=== PATIENT | female | born 1990 | race Caucasian/White ===

== ENCOUNTER 2017-08-26 09:43 | Emergency (ER) | payer MEDICAID ==
[2017-08-26] MEDS ORDERED: HYDROCODONE/ACETAMINOPHEN 5-325 MG TABLET PO ONE (10:06)
--- NOTE | 2017-08-26 11:28 | RADIOLOGY REPORT (SQ) ---
EXAM DESCRIPTION: FOOT LEFT COMPLETE COMPLETED DATE/TIME: 08/26/2017 10:54 am REASON FOR STUDY: fall, foot pain, swelling COMPARISON: None. NUMBER OF VIEWS: Three views. TECHNIQUE: AP, lateral and oblique radiographic images acquired of the left foot. LIMITATIONS: None. FINDINGS: MINERALIZATION: Normal. BONES: No acute fracture or dislocation. No worrisome bone lesions. JOINTS: No effusions. SOFT TISSUES: There is calcification along the expected location of the peroneal tendons, which corre lates with the area of pain indicated by the patient. Peroneal tendinopathy or partial-thickness tea r may be present. OTHER: No other significant finding. IMPRESSION: No acute fracture. Lateral foot pain with calcification/ossification of the peroneal tendons, indicating tendinopathy. Partial thickness tendon tear may be present TECHNICAL DOCUMENTATION: JOB ID: [id number] [employer]- All Rights Reserved
--- NOTE | 2017-08-26 11:58 | ER Document Report ---
ED Extremity Problem, Lower - General Chief Complaint: Foot Injury Stated Complaint: FALL/FOOT PAIN Time Seen by Provider: 08/26/17 09:53 Mode of Arrival: Wheelchair Information source: Patient Notes: Patient is a 27-year-old female who presents to the ER today for left foot pain after tripping and falling down some steps on it yesterday. Patient states that it bent underneath her. She admits to pain to the top of the foot and swelling to the top of the foot since that time. She denies any numbness or tingling. She admits to extreme pain with ambulation. TRAVEL OUTSIDE OF THE [place] IN LAST 30 DAYS: No - Related Data Allergies/Adverse Reactions: carbamazepine [From Tegretol] Allergy (Verified 08/26/17 09:46) ciprofloxacin [From Cipro] Allergy (Verified 08/26/17 09:46) Past Medical History - General Information source: Patient - Social History Smoking Status: Current Every Day Smoker Chew tobacco use (# tins/day): No Frequency of alcohol use: Occasional Drug Abuse: None Family History: Reviewed & Not Pertinent Patient has suicidal ideation: No Patient has homicidal ideation: No Renal/ Medical History: Denies: Hx Peritoneal Dialysis Psychiatric Medical History: Reports: Hx Bipolar Disorder, Hx Schizophrenia Past Surgical History: Reports: Hx Breast Surgery, Hx Cholecystectomy, Hx Urinary Tract Surgery - bladder stretching Review of Systems - Review of Systems Constitutional: No symptoms reported EENT: No symptoms reported Cardiovascular: No symptoms reported Respiratory: No symptoms reported Gastrointestinal: No symptoms reported Genitourinary: No symptoms reported Female Genitourinary: No symptoms reported Musculoskeletal: See HPI Skin: See HPI Hematologic/Lymphatic: No symptoms reported Neurological/Psychological: No symptoms reported Physical Exam - Vital signs Vitals: Temp Pulse Resp BP Pulse Ox 97.6 F 111 H 18 122/67 100 08/26/17 09:50 08/26/17 09:50 08/26/17 09:50 08/26/17 09:50 08/26/17 09:50 - Notes Notes: PHYSICAL EXAMINATION: GENERAL: Obviously uncomfortable, but in no acute distress. HEAD: Atraumatic, normocephalic. EYES: Pupils equal round and reactive to light, extraocular movements intact, sclera anicteric, conjunctiva are normal. NECK: Normal range of motion, supple without lymphadenopathy LUNGS: CTAB and equal. No wheezes rales or rhonchi. HEART: Regular rate and rhythm without murmurABDOMEN: Soft, no tenderness. No guarding, no rebound BACK: no vertebral tenderness, normal ROM GI/: no CVA tenderness EXTREMITIES: Normal range of motion, no pitting edema. No cyanosis. NEUROLOGICAL: Cranial nerves grossly intact. Normal sensory/motor exams. PSYCH: Normal mood, normal affect. SKIN: Warm, Dry, normal turgor, indurated edema to left dorsal foot, tender to palpation, no ecchymoses or erythema Course - Re-evaluation Re-evalutation: 08/26/17 16:58 X-ray reports no bony abnormality, however evidence of a possible partial thickness tendon tear. Patient placed in Doron wrap and given crutches, given orthopedic information to follow-up with. - Vital Signs Vital signs: Temp Pulse Resp BP Pulse Ox 98.1 F 97 20 129/78 H 98 08/26/17 12:12 08/26/17 12:12 08/26/17 12:12 08/26/17 12:12 08/26/17 12:12 Discharge - Discharge Clinical Impression: Left foot pain Condition: Stable Disposition: HOME, SELF-CARE Additional Instructions: Return immediately for any new or worsening symptoms. Follow up with primary care provider, call tomorrow to make followup appointment. Prescriptions: Hydrocodone/Acetaminophen [Temple 5-325 mg Tablet] 1 tab PO Q4 PRN #15 tablet PRN Reason: Forms: Return to Work Referrals: CARRILLO PABLO MD [ACTIVE STAFF] - Follow up as needed
[2017-08-26 12:26] VITALS: BP 129/78
== END 2017-08-26 12:15 | disposition home or self-care (01) ==
LOC: ER 09:43
DX: M79.672 Pain in left foot (principal); W01.0XXA Fall on same level from slipping, tripping and stumbling without subsequent striking against object, initial encounter; F17.200 Nicotine dependence, unspecified, uncomplicated
CPT/HCPCS: 99283